=== PATIENT | male | born 1995 | race Caucasian/White ===

== ENCOUNTER 2016-11-21 15:38 | Emergency (ER) | payer OTHER ==
[2016-11-21 15:43] VITALS: BP 153/106; PULSE 103; TEMP 98.7; BMI 33.1
--- NOTE | 2016-11-21 16:31 | PDOC ---
History of Present Illness - General Chief Complaint: Cold Symptoms Stated Complaint: WEAKNESS, HEADACHE, COUGH Time Seen by Provider: 11/21/16 16:12 History Source: Patient Exam Limitations: No Limitations - History of Present Illness Initial Comments: 11/21/16 16:34 My chief complaint: Fever, chills, sore throat nasal congestion, cough, body aches History of present illness: Patient is a 21-year-old male with no significant medical problems here today with sudden onset of fever, chills, sore throat, nasal congestion dry cough and body aches. Patient denies any nausea vomiting or diarrhea. Patient reports that his son was diagnosed 2 days ago with influenza A. Patient did not have influenza vaccine. Patient denies any difficulty breathing or swallowing. 11/21/16 16:36 Timing/Duration: intermittent Severity: mild Associated Symptoms: reports: cough, fever/chills, loss of appetite, other ( nasal congestion , chills fever, body aches). denies: nausea/vomiting Past History - Past Medical History Allergies/Adverse Reactions: Allergies Allergy/AdvReac Type Severity Reaction Status Date / Time No Known Allergies Allergy Verified 11/21/16 15:43 Home Medications: Ambulatory Orders No Home Medications 0 dose .ROUTE UTDICT 02/21/14 Dextromethorphan Polistirex [Delsym] 60 mg PO Q12H PRN #8 oz 11/21/16 Oseltamivir Phosphate [Tamiflu -] 75 mg PO BID #10 capsule 11/21/16 Other medical history: NONE - Psycho/Social/Smoking Cessation Hx Suicidal Ideation: No Smoking History: Never smoked Hx Alcohol Use: No Drug/Substance Use Hx: No Substance Use Type: None Review of Systems - Review of Systems Able to Perform ROS?: Yes Constitutional: Yes: Chills, Fever, Loss of Appetite HEENTM: Yes: Nose Congestion, Throat Pain Respiratory: Yes: Cough. No: Orthopnea, Shortness of Breath, SOB with Exertion , SOB at Rest, Stridor, Wheezing, Productive cough Cardiac (ROS): No: Symptoms Reported ABD/GI: No: Symptoms Reported Musculoskeletal: Yes: Other (bodyaches ) Integumentary: No: Symptoms Reported Neurological: No: Symptoms reported *Physical Exam - Vital Signs Last Vital Signs Temp Pulse Resp BP Pulse Ox 98.7 F 103 H 20 153/106 96 11/21/16 15:40 11/21/16 15:40 11/21/16 15:40 11/21/16 15:40 11/21/16 15:40 - Physical Exam General Appearance: Yes: Appropriately Dressed HEENT: positive: Pharyngeal Erythema, Nasal Congestion, Rhinorrhea (clear b/l ) . negative: Tonsillar Exudate, Tonsillar Erythema Neck: negative: Lymphadenopathy (R), Lymphadenopathy (L) Respiratory/Chest: positive: Lungs Clear, Normal Breath Sounds. negative: Chest Tender, Respiratory Distress Cardiovascular: positive: Regular Rhythm, Regular Rate, S1, S2 Integumentary: positive: Normal Color Neurologic: positive: Alert, Normal Response, Responsive Medical Decision Making - Medical Decision Making 11/21/16 16:36 Patient is a 21-year-old male with no significant medical problems here today with sudden onset of fever, chills, sore throat, nasal congestion dry cough and body aches. Patient denies any nausea vomiting or diarrhea. Patient reports that his son was diagnosed 2 days ago with influenza A. Patient did not have influenza vaccine. Patient denies any difficulty breathing or swallowing. Exposure to influenza a Patient currently symptomatic with chills, intermittent fever, sore throat, nasal congestion cough and body aches Plan: Tamiflu 75 mg twice a day 5 days Delsym 10 ml q12hr prn cough *DC/Admit/Observation/Transfer Diagnosis at time of Disposition: Exposure to influenza - Discharge Dispostion Disposition: HOME Condition at time of disposition: Stable - Prescriptions Prescriptions: Dextromethorphan Polistirex [Delsym] 60 mg PO Q12H PRN #8 oz PRN Reason: Cough Oseltamivir Phosphate [Tamiflu -] 75 mg PO BID #10 capsule - Referrals Referrals: Kathryn Liriano MD [Primary Care Provider] - - Patient Instructions Additional Instructions: Drin A lot of fluids and rest Follow-up with your primary care provider after symptoms have resolved to have your blood pressure rechecked Right return to emergency room if any difficulty breathing or swallowing. Take ibuprofen or acetaminophen as needed as directed by director of state for body aches or fever The patient voiced understanding of discharge instructions and all questions were answered
== END 2016-11-21 16:54 | disposition home or self-care (01) ==
LOC: JERFT 15:38
DX: Z20.828 Contact with and (suspected) exposure to other viral communicable diseases (principal)
CPT/HCPCS: 99281-25

== ENCOUNTER 2018-07-22 20:06 | Emergency (ER) | payer SELFPAY ==
[2018-07-22 20:14] VITALS: BP 137/67; PULSE 67; TEMP 98.3; BMI 35.4
[2018-07-22] MEDS ORDERED: CEPHALEXIN MONOHYDRATE 500 MG CAPSULE (UD) PO ONE (21:02)
--- NOTE | 2018-07-22 21:05 | PDOC ---
History of Present Illness - General Chief Complaint: Ear Problem Stated Complaint: MASS ON BACK OF EAR Time Seen by Provider: 07/22/18 20:32 History Source: Patient Exam Limitations: No Limitations - History of Present Illness Initial Comments: 07/22/18 20:59 Patient here with complaints of swelling and lesion to the back of his left earlobe. States has had a pimple there for some week and has been squeezing and manipulating. Patient became concerned because lesion has become larger and started to bleed a couple days ago and was having difficulty stopping the bleeding. Also swelling behind earlobe Timing/Duration: unsure, constant, getting worse Associated Symptoms: reports: denies symptoms Past History - Travel Traveled outside of the country in the last 30 days: No Close contact w/someone who was outside of country & ill: No - Past Medical History Allergies/Adverse Reactions: Allergies Allergy/AdvReac Type Severity Reaction Status Date / Time No Known Allergies Allergy Verified 07/22/18 20:13 Home Medications: Ambulatory Orders No Home Medications 0 dose .ROUTE UTDICT 02/21/14 Cephalexin Monohydrate [Keflex -] 500 mg PO Q8H #21 capsule 07/22/18 COPD: No - Immunization History Immunization Up to Date: Yes - Suicide/Smoking/Psychosocial Hx Smoking History: Never smoked Hx Alcohol Use: No Drug/Substance Use Hx: No Substance Use Type: None Review of Systems - Review of Systems Able to Perform ROS?: Yes Is the patient limited Arabic proficient: Yes Constitutional: Yes: Symptoms Reported, See HPI, Malaise HEENTM: Yes: See HPI, Ear Pain. No: Symptoms Reported Respiratory: No: Symptoms reported Musculoskeletal: No: Symptoms Reported Integumentary: Yes: Symptoms Reported All Other Systems: Reviewed and Negative *Physical Exam - Vital Signs Last Vital Signs Temp Pulse Resp BP Pulse Ox 98.3 F 67 20 137/67 99 07/22/18 20:11 07/22/18 20:11 07/22/18 20:11 07/22/18 20:11 07/22/18 20:11 - Physical Exam General Appearance: Yes: Nourished, Appropriately Dressed, Mild Distress HEENT: positive: TMs Normal Neck: positive: Tender, Supple, Lymphadenopathy (L). negative: Lymphadenopathy (R) Respiratory/Chest: positive: Lungs Clear Musculoskeletal: positive: Normal Inspection Extremity: positive: Normal Capillary Refill Integumentary: positive: Pale, Other (patient with a 1 cm lobular lesion to the upper aspect of his posterior pinna that appears vascular with honey crusted drainage. Has a large tender lymph node postauricular) Neurologic: positive: hims manager II-XII NML intact, Fully Oriented, Alert, Normal Mood/ Affect, Normal Response, Motor Strength 5/5 *DC/Admit/Observation/Transfer Diagnosis at time of Disposition: Pyogenic granuloma of skin - Discharge Dispostion Disposition: HOME Condition at time of disposition: Stable Decision to Admit order: No - Referrals - Patient Instructions Printed Discharge Instructions: DI for Skin Lesion Removal Additional Instructions: Rest , Avoid area, did not squeeze the area and reapply bacitracin twice a day May use Tylenol or Motrin for mild pain relief Keflex 500 mg tablet 3 times a day for the next 1 week Continue all medications as prescribed Followup with private physician in 2-3 days for wound check Would recommend fixed wing aircraft flight engineer for evaluation and excision of this lesion once healed and not infected. Return to emergency Department for worsening swelling, pain, redness, fevers as needed - Post Discharge Activity
[2018-07-22] MEDS ORDERED: CEPHALEXIN MONOHYDRATE 500 MG CAPSULE (UD) ONE (21:12)
== END 2018-07-22 21:30 | disposition home or self-care (01) ==
LOC: JERFT 20:06
DX: R05 Cough (principal); L98.0 Pyogenic granuloma
CPT/HCPCS: 99281-25

== ENCOUNTER 2018-09-16 03:55 | Emergency (ER) | payer OTHER ==
--- NOTE | 2018-09-16 04:32 | PDOC ---
Attending Attestation - Resident Resident Name: Corey Perez - ED Attending Attestation I have performed the following: I have examined & evaluated the patient, The case was reviewed & discussed with the resident, I agree w/resident's findings & plan - HPI HPI: 09/17/18 04:06 Pt comes with an elbow injuty while playing soccer. - Physicial Exam PE: 09/17/18 04:06 Agree with resident exam. Pt has point tenderness, but no funcitonal deficits. - Medical Decision Making 09/17/18 04:07 XRAY elbow normal. Pt will be placed in a sling for comfort and asked to follow with ortho as an outpatient.
[2018-09-16 04:39] VITALS: BP 124/66; PULSE 60; TEMP 98.4; BMI 42.0
[2018-09-16] MEDS ORDERED: ACETAMINOPHEN 325 MG TABLET (FP) PO ONE (04:57)
--- NOTE | 2018-09-16 04:59 | PDOC ---
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 The patient reports that he was playing soccer around 0000 this morning. He dove to block the ball and hyperextended his elbow and landed on it. Since that time the patient reports pain with flexion of his R elbow. He is unable to flex past 50 degrees 2/2 pain. The patient also reports pain in the elbow with wrist flexion. He denies numbness or weakness. He denies any other injury The patient denies Hx of surgery He denies recent fevers/chills, head trauma, VILLATORO, LOC, vision changes, chest pain , or changes in sensation 09/16/18 06:30 Past History - Past Medical History Allergies/Adverse Reactions: Allergies Allergy/AdvReac Type Severity Reaction Status Date / Time No Known Allergies Allergy Verified 09/16/18 04:36 Home Medications: Ambulatory Orders No Home Medications 0 dose .ROUTE UTDICT 02/21/14 COPD: No - Immunization History Immunization Up to Date: Yes - Suicide/Smoking/Psychosocial Hx Smoking History: Never smoked Have you smoked in the past 12 months: No Information on smoking cessation initiated: No Hx Alcohol Use: No Drug/Substance Use Hx: No Substance Use Type: None Review of Systems - Review of Systems Able to Perform ROS?: Yes Is the patient limited [place] proficient: No *Physical Exam - Vital Signs Last Vital Signs Temp Pulse Resp BP Pulse Ox 98.4 F 60 18 124/66 99 09/16/18 03:56 09/16/18 03:56 09/16/18 03:56 09/16/18 03:56 09/16/18 03:56 - Physical Exam Comments: GENERAL: Awake, alert, and fully oriented, in no acute distress HEAD: No signs of trauma, normocephalic, atraumatic EYES: PERRL, EOMI, sclera anicteric, conjunctiva clear ENT: Hearing grossly normal, nares patent, oropharynx clear without exudates. Moist mucosa LUNGS: No distress, speaks full sentences, clear to auscultation bilaterally HEART:Regular rate and rhythm, normal S1 and S2, no murmurs appreciated, peripheral pulses normal and equal bilaterally ABDOMEN: Soft, nontender, normoactive bowel sounds. No guarding, no rebound NEUROLOGICAL: Cranial nerves II through XII grossly intact. Normal speech, normal gait, no focal sensorimotor deficits SKIN: Warm, Dry, normal turgor, no rashes or lesions noted RUE: Inspection: TTP over medial epicondyle of humerus, No erythema or ecchymosis. no obvious deformity. no open wounds. Compartments soft and compressible, pain within proportion, no pain to passive stretch Sensation: sensation present to light touch m/r/u n Motor: intact AIN/PIN/Ulnar in hand; 4/5 Wrist flex 2/2 pain 5/5 wrist ext; 4/5 Elbow flex 2/2 pain, 5/5 elbow ext; 5/5 Shoulder ABd,Flex Vascular: 2+ radial pulse palpated, BCR all fingers <2 sec. LUE: Inspection: No erythema or ecchymosis. No tenderness, no obvious abnormalities, no open wounds. Compartments soft and compressible, pain within proportion, no pain to passive stretch Sensation: sensation present to light touch m/r/u n Motor: intact AIN/PIN/Ulnar in hand; 5/5 Wrist flex/ext; 5/5 Elbow flex/ext; 5/ 5 Shoulder ABd,Flex Vascular: 2+ radial pulse palpated, BCR all fingers <2 sec. 09/16/18 05:00 ED Treatment Course - RADIOLOGY Radiology Studies Ordered: Category Date Time Status ELBOW-RIGHT [RAD] Stat Radiology 09/16/18 04:59 Ordered Medical Decision Making - Medical Decision Making The patient is a 22M w/ a history of liver dysfunction 2/2 to an unknown cause who presents for evaluation of R medial elbow pain Patient w/ pain on flexion of elbow, more so w/ wrist Patient neurosensory intact 2+ pulses compartments soft Ibuprofen 800mg PO once for pain R elbow XR to f/o fx/dislocation If XR negative, plan to sling, discharge, and plan for outpt f/u w/ orthopedics 09/16/18 05:09 Plain film without evidence of fx or dislocation. No SQ air. No abn fat pads Plan for sling and discharge w/ ortho f/u Discharge instructions and return precautions given Patient is in agreement and verbalized understanding Dispo: home 09/16/18 06:34 *DC/Admit/Observation/Transfer Diagnosis at time of Disposition: Injury of flexor tendon of right hand Qualifiers: Encounter type: initial encounter Qualified Code(s): S66.801A - Unspecified injury of other specified muscles, fascia and tendons at wrist and hand level, right hand, initial encounter - Discharge Dispostion Disposition: HOME Condition at time of disposition: Stable Decision to Admit order: No - Referrals Referrals: Kathryn Liriano MD [Primary Care Provider] - Zev Damian MD [Staff Physician] - - Patient Instructions Printed Discharge Instructions: How to Use a Sling Additional Instructions: You were seen in the Emergency Department for right elbow pain. Please review the handouts provided at discharge. Please follow up with your primary care provider and orthopedic surgery. Return to the Emergency Department if you develop worsening pain, decreased function of your arm, decreased sensation, swelling of the extremity, or any new /concerning symptoms - Post Discharge Activity Forms/Work/School Notes: Back to Work
[2018-09-16] MEDS ORDERED: ACETAMINOPHEN 325 MG TABLET (FP) ONE (05:03)
[2018-09-16] MEDS ORDERED: IBUPROFEN 400 MG TABLET (FP) PO ONE ×2 (05:04→05:05)
== END 2018-09-16 05:42 | disposition home or self-care (01) ==
LOC: JER 03:55
DX: S66.801A Unspecified injury of other specified muscles, fascia and tendons at wrist and hand level, right hand, initial encounter (principal); W18.39XA Other fall on same level, initial encounter; Y93.66 Activity, soccer; Y92.322 Soccer field as the place of occurrence of the external cause; Y99.8 Other external cause status
CPT/HCPCS: 73070-TC-RT-FY; 99283-25

== ENCOUNTER 2019-09-17 11:04 | Inpatient (IN) | payer SELFPAY ==
[2019-09-17] MEDS ORDERED: IBUPROFEN 600 MG TABLET (FP) PO ONE ×2 (11:53→11:58)
[2019-09-17] MEDS ORDERED: ALBUTEROL SO4 2.5/IPRATROPIUM 0.5 INH SOL 3 ML VIAL.NEB. NEB ONE ×6 (11:56→16:01)
[2019-09-17] MEDS ORDERED: SODIUM CHLORIDE 0.9% 1000 ML INFUS.BAG IV ONE (11:57)
[2019-09-17 12:32] LABS: BASO % 0.6 % (0-2.0); EOS % 3.1 % (0-4.5); HEMATOCRIT 45.8 % (35.4-49); HEMOGLOBIN 14.9 GM/dL (11.7-16.9); LYMPH % 17.6 % (8-40); MCH 26.8 pg (25.7-33.7); MCHC 32.5 g/dl (32.0-35.9); MEAN CELL VOLUME 82.2 fl (80-96); MEAN PLT VOLUME 8.7 fl (7.5-11.1); MONO % 6.4 % (3.8-10.2); NEUT % 72.3 % (42.8-82.8); PLATELET COUNT 228 K/MM3 (134-434); RBC 5.57 M/mm3 (4.00-5.60); RDW 14.7 % (11.9-15.9); WHITE BLOOD COUNT 15.8 K/mm3 (4.0-10.0)
[2019-09-17 13:09] LABS: ALBUMIN 4.2 g/dl (3.4-5.0); BILIRUBIN,TOTAL 1.4 mg/dL (0.2-1); BLOOD UREA NITROGEN 11.5 mg/dL (7-18); CALCIUM 9.2 mg/dL (8.5-10.1); CREATININE 0.8 mg/dL (0.55-1.3); POTASSIUM 3.6 mmol/L (3.5-5.1); TOT PROT 7.9 g/dl (6.4-8.2)
--- NOTE | 2019-09-17 13:11 | PDOC ---
History of Present Illness - General Chief Complaint: Shortness of Breath Stated Complaint: DIFF. BREATHING History Source: Patient Exam Limitations: No Limitations - History of Present Illness Initial Comments: 09/17/19 13:09 23-year-old male no past medical history here today complaining of cough congestion subjective fevers chills body aches. Patient states that his symptoms started 2 days ago initially with a fever and cough. Since that time he is now having shortness of breath states he has right-sided lower chest pain with deep breathing. No nausea no vomiting feels that he cannot catch his breath completely. No known history of asthma no sick contacts no recent travel no rash states he took Tylenol at home for his fever and pain but is now having problems with his shortness of breath. Denies tobacco use Past History - Past Medical History Allergies/Adverse Reactions: Allergies Allergy/AdvReac Type Severity Reaction Status Date / Time No Known Allergies Allergy Verified 09/17/19 11:23 Home Medications: Ambulatory Orders Acetaminophen [Tylenol -] 500 mg PO Q6H 09/17/19 COPD: No - Immunization History Immunization Up to Date: Yes - Psycho Social/Smoking Cessation Hx Smoking History: Current some day smoker Have you smoked in the past 12 months: No Number of Cigarettes Smoked Daily: 2 Information on smoking cessation initiated: No Hx Alcohol Use: No Drug/Substance Use Hx: No Substance Use Type: None Review of Systems - Review of Systems Constitutional: Yes: Chills, Fever HEENTM: No: Eye Pain Respiratory: Yes: Cough, Shortness of Breath, Wheezing Cardiac (ROS): Yes: Chest Pain ABD/GI: No: Abdominal Distended, Nausea : No: Burning, Dysuria Musculoskeletal: No: Gout All Other Systems: Reviewed and Negative *Physical Exam - Vital Signs Last Vital Signs Temp Pulse Resp BP Pulse Ox 98.3 F 107 H 22 H 128/74 94 L 09/17/19 11:23 09/17/19 11:23 09/17/19 11:23 09/17/19 11:23 09/17/19 11:23 - Physical Exam Comments: 09/17/19 13:10 Awake alert no acute distress bilateral nares with clear rhinorrhea and congestion lungs are with diffuse wheezing all lung west. There is poor air entry. But normal effort no crackles appreciated heart is regular tachycardic no murmurs rubs or gallops abdomen is soft nontender extremities are warm and well-perfused no noted edema skin is warm and dry no rash ED Treatment Course - LABORATORY CBC & Chemistry Diagram: 09/17/19 12:20 09/17/19 12:20 - ADDITIONAL ORDERS Additional order review: 09/17/19 12:20 RBC 5.57 MCV 82.2 MCHC 32.5 RDW 14.7 MPV 8.7 Neutrophils % 72.3 D Lymphocytes % 17.6 D Monocytes % 6.4 Eosinophils % 3.1 Basophils % 0.6 - RADIOLOGY Radiology Studies Ordered: Category Date Time Status CHEST PA & LAT [RAD] Stat Radiology 09/17/19 11:53 Ordered - Medications Given in the ED: ED Medications Discontinued Medications Generic Name Dose Route Start Last Admin Trade Name Jw PRN Reason Stop Dose Admin Albuterol/Ipratropium 1 amp 09/17/19 11:56 09/17/19 12:00 Duoneb - NEB 09/17/19 11:57 1 amp ONCE ONE Administration Ibuprofen 600 mg 09/17/19 11:53 09/17/19 12:00 Motrin - PO 09/17/19 11:54 600 mg ONCE ONE Administration Sodium Chloride 1,000 ml 09/17/19 11:57 09/17/19 12:00 Normal Saline - IV 09/17/19 11:58 1,000 ml ONCE ONE Administration Medical Decision Making - Medical Decision Making 09/17/19 13:11 23-year-old male here with fever cough congestion no pleuritic pain shortness of breath. Noted to be tachycardic with a pulse ox of 94%. Differential includes influenza, pneumonia, bronchitis, pleural effusion, pericarditis. Plan Motrin IV fluids basic labs chest x-ray given bronchodilators will reassess an EKG 09/17/19 15:01 pt cxr read as negative. will given steroids, antoher neb for persistant wheezing. will cover wtih levaquin for bronchitis. wBC 15. flu negative. 09/17/19 15:24 pt wtih persistant wheezing despite nebs. pulse ox 94%. no ho prior wheezing. will admit for bronchospasm. and persistant hypoxia. Discharge - Discharge Information Problems reviewed: Yes Clinical Impression/Diagnosis: Bronchitis, Bronchospasm Condition: Improved - Admission Yes - Follow up/Referral - Patient Discharge Instructions - Post Discharge Activity
[2019-09-17] MEDS ORDERED: predniSONE 20 MG TABLET (UD) PO ONE (15:00)
[2019-09-17] MEDS ORDERED: predniSONE 20 MG TABLET (UD) ONE (16:01)
--- NOTE | 2019-09-17 19:03 | HP ---
Admitting History and Physical - Primary Care Physician PCP: Armando Rosen - Admission History of Present Illness: 23-year-old male no past medical history here today complaining of cough congestion subjective fevers chills body aches. Patient states that his symptoms started 2 days ago initially with a fever and cough. Since that time he is now having shortness of breath states he has right-sided lower chest pain with deep breathing. No nausea no vomiting feels that he cannot catch his breath completely. No known history of asthma no sick contacts no recent travel no rash states he took Tylenol at home for his fever and pain but is now having problems with his shortness of breath. Denies tobacco use - Smoking History Smoking history: Current some day smoker Have you smoked in the past 12 months: No Aproximately how many cigarettes per day: 2 - Alcohol/Substance Use Hx Alcohol Use: No Home Medications - Allergies Allergies/Adverse Reactions: Allergies Allergy/AdvReac Type Severity Reaction Status Date / Time No Known Allergies Allergy Verified 09/17/19 11:23 - Home Medications Home Medications: Ambulatory Orders Acetaminophen [Tylenol -] 500 mg PO Q6H 09/17/19 Physical Examination Vital Signs: Vital Signs Temperature 98.3 F 09/17/19 11:23 Pulse Rate 112 H 09/17/19 13:57 Respiratory Rate 22 H 09/17/19 13:57 Blood Pressure 134/80 09/17/19 13:57 O2 Sat by Pulse Oximetry (%) 94 L 09/17/19 13:57 Constitutional: Yes: No Distress HENT: Yes: Atraumatic Neck: Yes: Supple Cardiovascular: Yes: Regular Rate and Rhythm Respiratory: Yes: CTA Bilaterally Gastrointestinal: Yes: Normal Bowel Sounds Extremities: Yes: WNL Edema: No Neurological: Yes: Alert, Oriented Labs: CBC, BMP 09/17/19 12:20 09/17/19 12:20 Problem List - Problems (1) Upper respiratory infection Assessment/Plan: probably viral will get id involve Code(s): J06.9 - ACUTE UPPER RESPIRATORY INFECTION, UNSPECIFIED (2) Bronchitis Assessment/Plan: was given a dose of abx Code(s): J40 - BRONCHITIS, NOT SPECIFIED ACUTE OR CHRONIC Assessment/Plan Laboratory Tests 09/17/19 09/17/19 09/17/19 12:20 12:20 12:20 WBC 15.8 H RBC 5.57 Hgb 14.9 Hct 45.8 MCV 82.2 MCH 26.8 MCHC 32.5 RDW 14.7 Plt Count 228 MPV 8.7 Absolute Neuts (auto) 11.4 H Neutrophils % 72.3 D Lymphocytes % 17.6 D Monocytes % 6.4 Eosinophils % 3.1 Basophils % 0.6 Nucleated RBC % 0 Sodium 138 Potassium 3.6 Chloride 102 Carbon Dioxide 27 Anion Gap 8 BUN 11.5 Creatinine 0.8 Est GFR (CKD-EPI)AfAm 143.90 Est GFR (CKD-EPI)NonAf 124.16 Random Glucose 88 Lactic Acid Calcium 9.2 Total Bilirubin 1.4 H AST 28 ALT 88 H Alkaline Phosphatase 80 Total Protein 7.9 Albumin 4.2 Influenza A (Rapid) Negative Influenza B (Rapid) Negative 09/17/19 12:20 WBC RBC Hgb Hct MCV MCH MCHC RDW Plt Count MPV Absolute Neuts (auto) Neutrophils % Lymphocytes % Monocytes % Eosinophils % Basophils % Nucleated RBC % Sodium Potassium Chloride Carbon Dioxide Anion Gap BUN Creatinine Est GFR (CKD-EPI)AfAm Est GFR (CKD-EPI)NonAf Random Glucose Lactic Acid 1.6 Calcium Total Bilirubin AST ALT Alkaline Phosphatase Total Protein Albumin Influenza A (Rapid) Influenza B (Rapid) Active Medications Generic Name Dose Route Start Last Admin Trade Name Freq PRN Reason Stop Dose Admin Albuterol/Ipratropium 1 amp 09/17/19 19:16 Duoneb - NEB Q4H PRN SHORTNESS OF BREATH
[2019-09-17] MEDS ORDERED: ALBUTEROL SO4 2.5/IPRATROPIUM 0.5 INH SOL 3 ML VIAL.NEB. NEB PRN (19:16)
[2019-09-17 20:49] VITALS: BMI 39.2
[2019-09-18 07:54] LABS: BASO % 0.3 % (0-2.0); EOS % 0.8 % (0-4.5); HEMATOCRIT 43.3 % (35.4-49); HEMOGLOBIN 14.4 GM/dL (11.7-16.9); LYMPH % 19.5 % (8-40); MCH 27.1 pg (25.7-33.7); MCHC 33.3 g/dl (32.0-35.9); MEAN CELL VOLUME 81.4 fl (80-96); MEAN PLT VOLUME 9.1 fl (7.5-11.1); MONO % 9.2 % (3.8-10.2); NEUT % 70.2 % (42.8-82.8); PLATELET COUNT 223 K/MM3 (134-434); RBC 5.32 M/mm3 (4.00-5.60); RDW 14.9 % (11.9-15.9); WHITE BLOOD COUNT 12.8 K/mm3 (4.0-10.0)
[2019-09-18 08:08] LABS: ALBUMIN 3.8 g/dl (3.4-5.0); BILIRUBIN,TOTAL 0.9 mg/dL (0.2-1); BLOOD UREA NITROGEN 14.3 mg/dL (7-18); CALCIUM 9.7 mg/dL (8.5-10.1); CREATININE 0.8 mg/dL (0.55-1.3); POTASSIUM 4.2 mmol/L (3.5-5.1); TOT PROT 7.6 g/dl (6.4-8.2)
--- NOTE | 2019-09-18 11:03 | CONSULT ---
Consult Consult Specialty:: PULM/CCM Referred by:: TODD Reason for Consultation:: SOB - History of Present Illness Chief Complaint: SOB History of Present Illness: 23 M, no medical history. No previous history of asthma or any medical illnesses. Last travel was to [facility] in June. His 4 year old son has been having URI symptoms for the last few days. He developed acute onset of congested cough, wheezing, and subjective fevers/ chills and body aches. No hemoptysis. Presented to the ER as was heard to have diffuse wheezing. Given Predisone and BD TX. At present feels much improved and almost back to his baseline. CXR: no acute process No smoking but occasionally vapes, last time was 2 months ago. Works at [employer]. - History Source History Provided By: Patient Limitations to Obtaining History: No Limitations - Past Medical History Pulmonary: No: Asthma, Bronchitis, Cancer, COPD, O2 Dependent, Pneumonia, Previously Intubated, Pulmonary Embolus, Pulmonary Fibrosis, Sleep Apnea - Alcohol/Substance Use Hx Alcohol Use: No - Smoking History Smoking history: Current some day smoker Have you smoked in the past 12 months: No Aproximately how many cigarettes per day: 2 Home Medications - Allergies Allergies/Adverse Reactions: Allergies Allergy/AdvReac Type Severity Reaction Status Date / Time No Known Allergies Allergy Verified 09/17/19 11:23 - Home Medications Home Medications: Ambulatory Orders Acetaminophen [Tylenol -] 500 mg PO Q6H 09/17/19 Review of Systems - Review of Systems Constitutional: reports: Chills, Fever, Malaise. denies: Night Sweats, Unintentional Wgt. Loss Eyes: reports: No Symptoms HENT: reports: No Symptoms Neck: reports: No Symptoms Cardiovascular: reports: Shortness of Breath. denies: Chest Pain, Edema, Palpitations Respiratory: reports: Cough, Snoring, SOB, SOB on Exertion, Wheezing. denies: Hemoptysis, Orthopnea, PND Gastrointestinal: reports: No Symptoms Genitourinary: reports: No Symptoms Breasts: reports: No Symptoms Reported Musculoskeletal: reports: No Symptoms Integumentary: reports: No Symptoms Neurological: reports: No Symptoms Endocrine: reports: No Symptoms Hematology/Lymphatic: reports: No Symptoms Psychiatric: reports: No Symptoms Physical Exam Vital Signs: Vital Signs Temperature 97.8 F 09/18/19 06:00 Pulse Rate 87 09/18/19 06:00 Respiratory Rate 20 09/18/19 06:00 Blood Pressure 140/91 09/18/19 06:00 O2 Sat by Pulse Oximetry (%) 92 L 09/17/19 19:20 Constitutional: Yes: No Distress, Calm, Obese Eyes: Yes: Conjunctiva Clear, EOM Intact HENT: Yes: Atraumatic, Normocephalic, Thrush Neck: Yes: Trachea Midline Cardiovascular: Yes: Regular Rate and Rhythm Respiratory: Yes: Cough, Diminished. No: Accessory Muscle Use, Rales, Rhonchi, SOB, SOB on Exertion, Stridor, Tachypnea, Wheezes Gastrointestinal: Yes: Normal Bowel Sounds, Soft, Abdomen, Obese Renal/: Yes: WNL Musculoskeletal: Yes: WNL Extremities: Yes: WNL Edema: No Peripheral Pulses WNL: Yes Integumentary: Yes: WNL Neurological: Yes: WNL, Alert, Oriented ...Motor Strength: WNL Psychiatric: Yes: WNL, Alert, Oriented Labs: CBC, BMP 09/18/19 06:40 09/18/19 06:40 Imaging - Results Chest X-ray: Report Reviewed, Image Reviewed Problem List - Problems (1) Bronchitis Code(s): J40 - BRONCHITIS, NOT SPECIFIED ACUTE OR CHRONIC (2) Bronchospasm Code(s): J98.01 - ACUTE BRONCHOSPASM (3) Upper respiratory infection Code(s): J06.9 - ACUTE UPPER RESPIRATORY INFECTION, UNSPECIFIED Assessment/Plan Can DC Home with a short course of Prednisone Would not prescribe ABX No tobacco or vaping was discussed in detail Can prescribe Albuterol MDI every 4 hours as needed There is no Pulmonary contraindication for DC Thank you. Dr Burroughs
--- NOTE | 2019-09-18 12:03 | CON.ID ---
Consult Consult Specialty:: infectious diseases Referred by:: Reason for Consultation:: sob/r/o pneumonia - History of Present Illness Chief Complaint: sob History of Present Illness: 23 y/o with no medical history who works in [employer] started having symptoms since tuesday which started with congestion and then went on worsening and then became very bad and patient was not able to breathe and came to the hospital says his 4 yr old son had ur ,but jesus sick contacts at work plac travelled to [facility] in june no issues He developed acute onset of congested cough, wheezing, and subjective fevers/ chills and body aches. started on prednisone feels much better now - History Source History Provided By: Patient Limitations to Obtaining History: No Limitations - Past Medical History Pulmonary: No: Asthma, Bronchitis, Cancer, COPD, O2 Dependent, Pneumonia, Previously Intubated, Pulmonary Embolus, Pulmonary Fibrosis, Sleep Apnea - Alcohol/Substance Use Hx Alcohol Use: No - Smoking History Smoking history: Current some day smoker Have you smoked in the past 12 months: No Aproximately how many cigarettes per day: 2 Home Medications - Allergies Allergies/Adverse Reactions: Allergies Allergy/AdvReac Type Severity Reaction Status Date / Time No Known Allergies Allergy Verified 09/17/19 11:23 - Home Medications Home Medications: Ambulatory Orders Acetaminophen [Tylenol -] 500 mg PO Q6H 09/17/19 Review of Systems - Review of Systems Constitutional: reports: No Symptoms Eyes: reports: No Symptoms HENT: reports: No Symptoms Neck: reports: No Symptoms Cardiovascular: reports: No Symptoms Respiratory: reports: Cough, SOB, SOB on Exertion Gastrointestinal: reports: No Symptoms Genitourinary: reports: No Symptoms Musculoskeletal: reports: No Symptoms Integumentary: reports: No Symptoms Neurological: reports: No Symptoms Endocrine: reports: No Symptoms Hematology/Lymphatic: reports: No Symptoms Psychiatric: reports: No Symptoms Physical Exam Vital Signs: Vital Signs Temperature 97.8 F 09/18/19 06:00 Pulse Rate 87 09/18/19 06:00 Respiratory Rate 20 09/18/19 06:00 Blood Pressure 140/91 09/18/19 06:00 O2 Sat by Pulse Oximetry (%) 95 09/18/19 09:00 Constitutional: Yes: Well Nourished, No Distress, Calm, Obese Cardiovascular: Yes: Regular Rate and Rhythm Respiratory: Yes: Regular, Poor Air Entry (bases) Gastrointestinal: Yes: Normal Bowel Sounds, Soft Musculoskeletal: Yes: WNL Extremities: Yes: WNL Neurological: Yes: Alert, Oriented Psychiatric: Yes: Alert, Oriented Labs: CBC, BMP 09/18/19 06:40 09/18/19 06:40 Assessment/Plan Problem List - Problems (1) Bronchitis Code(s): J40 - BRONCHITIS, NOT SPECIFIED ACUTE OR CHRONIC (2) Bronchospasm Code(s): J98.01 - ACUTE BRONCHOSPASM (3) Upper respiratory infection Code(s): J06.9 - ACUTE UPPER RESPIRATORY INFECTION, UNSPECIFIED sob obesity plan at the moment will not start any abx await for blood cx to be back resp therapy rest as per the team
--- NOTE | 2019-09-18 18:02 | PN ---
Progress Note, Physician - Current Medication List Current Medications: Active Medications Albuterol/Ipratropium (Duoneb -) 1 amp NEB Q4H PRN PRN Reason: SHORTNESS OF BREATH - Objective Vital Signs: Vital Signs Temperature 97.8 F 09/18/19 06:00 Pulse Rate 87 09/18/19 06:00 Respiratory Rate 20 09/18/19 06:00 Blood Pressure 140/91 09/18/19 06:00 O2 Sat by Pulse Oximetry (%) 95 09/18/19 09:00 Constitutional: Yes: No Distress HENT: Yes: Atraumatic Neck: Yes: Supple Cardiovascular: Yes: Regular Rate and Rhythm Respiratory: Yes: CTA Bilaterally Gastrointestinal: Yes: Normal Bowel Sounds Extremities: Yes: WNL Neurological: Yes: Alert, Oriented Labs: CBC, BMP 09/18/19 06:40 09/18/19 06:40 Problem List - Problems (1) Upper respiratory infection Assessment/Plan: feeling good cs pending id on board Code(s): J06.9 - ACUTE UPPER RESPIRATORY INFECTION, UNSPECIFIED (2) Bronchitis Assessment/Plan: much better viral?? Code(s): J40 - BRONCHITIS, NOT SPECIFIED ACUTE OR CHRONIC
[2019-09-19 06:18] VITALS: BP 145/91; PULSE 70; TEMP 98
[2019-09-19 08:27] LABS: BASO % 1.1 % (0-2.0); EOS % 6.7 % (0-4.5); HEMATOCRIT 43.3 % (35.4-49); HEMOGLOBIN 14.4 GM/dL (11.7-16.9); LYMPH % 35.8 % (8-40); MCH 27.2 pg (25.7-33.7); MCHC 33.3 g/dl (32.0-35.9); MEAN CELL VOLUME 81.7 fl (80-96); MEAN PLT VOLUME 9.2 fl (7.5-11.1); MONO % 8.6 % (3.8-10.2); NEUT % 47.8 % (42.8-82.8); PLATELET COUNT 239 K/MM3 (134-434); RDW 15.3 % (11.9-15.9); WHITE BLOOD COUNT 10.4 K/mm3 (4.0-10.0)
[2019-09-19 08:39] LABS: ALBUMIN 3.5 g/dl (3.4-5.0); BILIRUBIN,TOTAL 0.8 mg/dL (0.2-1); BLOOD UREA NITROGEN 14.1 mg/dL (7-18); CALCIUM 8.7 mg/dL (8.5-10.1); CREATININE 0.7 mg/dL (0.55-1.3); POTASSIUM 4.1 mmol/L (3.5-5.1); TOT PROT 7.1 g/dl (6.4-8.2)
--- NOTE | 2019-09-19 12:51 | PN ---
Progress Note, Physician History of Present Illness: stable no new issues breathing well - Current Medication List Current Medications: Active Medications Albuterol/Ipratropium (Duoneb -) 1 amp NEB Q4H PRN PRN Reason: SHORTNESS OF BREATH - Objective Vital Signs: Vital Signs Temperature 98.0 F 09/19/19 06:00 Pulse Rate 70 09/19/19 06:00 Respiratory Rate 20 09/19/19 09:00 Blood Pressure 145/91 09/19/19 06:00 O2 Sat by Pulse Oximetry (%) 93 L 09/19/19 09:00 Constitutional: Yes: No Distress, Calm Cardiovascular: Yes: S1, S2 Respiratory: Yes: Regular, CTA Bilaterally Gastrointestinal: Yes: Normal Bowel Sounds, Soft Musculoskeletal: Yes: WNL Extremities: Yes: WNL Neurological: Yes: Alert, Oriented Psychiatric: Yes: Alert, Oriented Labs: CBC, BMP 09/19/19 06:55 09/19/19 06:55 Assessment/Plan Problem List - Problems (1) Bronchitis Code(s): J40 - BRONCHITIS, NOT SPECIFIED ACUTE OR CHRONIC (2) Bronchospasm Code(s): J98.01 - ACUTE BRONCHOSPASM (3) Upper respiratory infection Code(s): J06.9 - ACUTE UPPER RESPIRATORY INFECTION, UNSPECIFIED sob obesity plan continue current mgmt stable
--- NOTE | 2019-09-19 14:51 | DS ---
Physical Examination Vital Signs: Vital Signs Temperature 98.0 F 09/19/19 06:00 Pulse Rate 70 09/19/19 06:00 Respiratory Rate 20 09/19/19 09:00 Blood Pressure 145/91 09/19/19 06:00 O2 Sat by Pulse Oximetry (%) 93 L 09/19/19 09:00 Constitutional: Yes: No Distress HENT: Yes: Atraumatic Neck: Yes: Supple Cardiovascular: Yes: Regular Rate and Rhythm Respiratory: Yes: CTA Bilaterally Gastrointestinal: Yes: Normal Bowel Sounds Extremities: Yes: WNL Edema: No Neurological: Yes: Alert, Oriented Labs: CBC, BMP 09/19/19 06:55 09/19/19 06:55 Discharge Summary Problems reviewed: Yes Reason For Visit: BRONCHOSPASM Current Active Problems Bronchitis (Acute) Bronchospasm (Acute) Upper respiratory infection (Acute) Condition: Improved - Instructions Diet, Activity, Other Instructions: see your doctor at [facility] in 2-3 day - Home Medications Comprehensive Discharge Medication List: Ambulatory Orders Acetaminophen [Tylenol -] 500 mg PO Q6H 09/17/19 Albuterol Sulfate [Albuterol Sulfate Hfa] 18 gm IH Q4H #1 [id number] 09/19/19 cleared by id to be dc no need for abx
== END 2019-09-19 16:07 | disposition home or self-care (01) | DRG 144 ==
LOC: JER 11:04 → JERBED 15:02 → J6S 20:05
PROVIDERS: ADMIT Internal Medicine; ATTEND Internal Medicine
DX: J40 Bronchitis, not specified as acute or chronic (principal); J98.01 Acute bronchospasm; J06.9 Acute upper respiratory infection, unspecified; E66.9 Obesity, unspecified; Z68.39 Body mass index [BMI] 39.0-39.9, adult; F17.210 Nicotine dependence, cigarettes, uncomplicated
CPT/HCPCS: 36415; 71046-TC-FY; 80053; 83605; 85025; 87040; 87804; 99283-25; J7030